=== PATIENT | female | born 1975 | race Caucasian/White ===

== ENCOUNTER 2018-08-27 06:35 | Inpatient (IN) | payer BC ==
[~2018-08-27] VITALS: Ht 157.5 cm; Wt 71.4 kg
[2018-08-27 07:39] LABS: BASOPHIL % 0.5 % (0-2); PLATELET COUNT 307 x10^3mcL (130-400); RED CELL DISTRIBUTION WIDTH 14.3 % (11.5-14.5)
[2018-08-27 08:21] LABS: CALCIUM 9.1 mg/dL (8.5-10.1); CARBON DIOXIDE 20.1 mmol/L (21-32); POTASSIUM SERUM 4.8 mmol/L (3.5-5.1)
[2018-08-27 08:26] LABS: ALBUMIN 3.8 g/dL (3.4-5.0); BILIRUBIN TOTAL 0.2 mg/dL (0.20-1.00); TOTAL PROTEIN, SERUM 6.7 g/dL (6.4-8.2)
[2018-08-27 09:08] LABS: microscopic required? YES; urine erythrocyte NEGATIVE (NEGATIVE)
[2018-08-27] MEDS ORDERED: KLONOPIN1 MG PO (09:09)
[2018-08-27] MEDS ORDERED: TENORMIN50 MG PO (09:10)
[2018-08-27] MEDS ORDERED: JARDIANCE10 MG PO (09:13)
[2018-08-27] MEDS ORDERED: BELSOMRA20 MG PO (09:18)
[2018-08-27 11:19] VITALS: BP 120/54
[2018-08-27 12:06] LABS: FREE T4 0.96 ng/dL (0.76-1.46)
[2018-08-27 12:47] LABS: CHOLESTEROL/HDL RATIO 6.9
[2018-08-27 15:28] VITALS: BP 88/44
[2018-08-27 19:40] VITALS: BP 104/62
[2018-08-27 23:15] VITALS: BP 110/59
[2018-08-28 03:05] VITALS: BP 90/48
[2018-08-28 05:17] LABS: BASOPHIL % 0.5 % (0-2); PLATELET COUNT 237 x10^3mcL (130-400); RED CELL DISTRIBUTION WIDTH 14.2 % (11.5-14.5)
[2018-08-28 05:47] LABS: CALCIUM 8.8 mg/dL (8.5-10.1); CARBON DIOXIDE 25.7 mmol/L (21-32); CHLORIDE SERUM 109 mmol/L (98-107); GFR1 > 60 mL/min; GLUCOSE SERUM 106 mg/dL (74-106); MAGNESIUM 1.7 mg/dL (1.8-2.4); POTASSIUM SERUM 4.1 mmol/L (3.5-5.1); SODIUM SERUM 145 mmol/L (136-145)
[2018-08-28 07:58] VITALS: Ht 157.5 cm; Wt 71.4 kg
== END 2018-08-28 12:45 | disposition left against medical advice (07) | DRG 683 ==
LOC: ED 06:35 → IC 09:06
PROVIDERS: Emergency Medicine; ADMIT Internal Medicine
DX: N17.9 Acute kidney failure, unspecified (principal); N39.0 Urinary tract infection, site not specified; E03.9 Hypothyroidism, unspecified; G89.29 Other chronic pain; M54.9 Dorsalgia, unspecified; R00.1 Bradycardia, unspecified; I10 Essential (primary) hypertension; Z53.21 Procedure and treatment not carried out due to patient leaving prior to being seen by health care provider; E11.9 Type 2 diabetes mellitus without complications; Z98.891 History of uterine scar from previous surgery; Z90.49 Acquired absence of other specified parts of digestive tract; Z88.8 Allergy status to other drugs, medicaments and biological substances; Z91.14 Patient's other noncompliance with medication regimen; Z82.61 Family history of arthritis; Z84.1 Family history of disorders of kidney and ureter
CPT/HCPCS: 82962; 83880; 84439; 90732; G0378; J0171; J0696; J1815; J2060; J2270; J2543; J3370; J3475; J3490; J7030; J7042; Q0092